=== PATIENT | male | born 1955 | race Caucasian/White ===

== ENCOUNTER 2017-11-25 09:56 | Inpatient (IN) ==
[2017-11-25] MEDS ORDERED: ALBUTEROL 2.5 MG/3 ML NEB RESP TX STA (10:21)
[2017-11-25 10:27] LABS: Basophils # 0.1 10*3/uL (0.0-0.2); Basophils % 0.5 % (0.0-0.8); Eosinophils # 0.5 10*3/uL (0.0-0.87); Eosinophils % 4.3 % (0.00-10.9); Hematocrit 41.2 VOL% (42.0-52.0); Hemoglobin 13.6 GM/DL (14.0-18.0); Immature Granulocytes % 0.5 %; Immature Granulocytes Absolute 0.05 #; Lymphocytes # 1.6 10*3/uL (1.4-4.0); Mean Corpuscular Hemoglobin 31 PG (27-34); Mean Corpuscular Volume 92.4 FL (87-102); Mean Platelet Volume 10.7 FL (9.6-12.0); Monocytes # 0.8 10*3/uL (0.11-0.8); Monocytes % 7.9 % (1.7-12.7); Neutrophils # 7.5 10*3/uL (1.4-7.4); Neutrophils % 71.8 % (38.7-73.9); Platelet Count 176 T/CUMM (130-400); Red Blood Count 4.46 MC/CUMM (3.8-5.5); Red Cell Distribution Width 12.3 % (9.3-17.3); White Blood Count 10.5 T/CUMM (4-12)
[2017-11-25 10:38] LABS: PT Patient Result 10.9 SECS; Partial Thromboplastin Time 25.1 SECS (0-40)
[2017-11-25 10:46] LABS: Alanine Aminotransferase 17 U/L (16-61); Albumin 3.2 G/DL (3.4-5.0); Alkaline Phosphatase 90 U/L (45-117); Aspartate Amino Transferase 24 U/L (0-37); Bilirubin,Total < 0.39 MG/DL (0.2-1.0); Blood Urea Nitrogen 14 MG/DL (7-18); Calcium 8.6 MG/DL (8.5-10.1); Glucose 220 MG/DL (74-106); Osmolality,Calculated 286.4 MOS/KG (273-304); Potassium 4.1 MMOL/L (3.5-5.1); Sodium 140 MMOL/L (136-145); Total Protein 7.9 G/DL (6.4-8.3)
[2017-11-25 10:47] LABS: Troponin I Only 0.194 NG/ML (0.00-0.045)
[2017-11-25 10:52] LABS: ABG Base Excess 3.5 MMOL/L (-2.5-2.5); ABG HCO3 27.2 MMOL/L (20-26); ABG Oxygen Saturation 84.8 % (95-100); ABG PCO2 44.9 MM HG (35-48); ABG PH 7.415 (7.35-7.45); ABG PO2 49.9 MM HG (80-95)
[2017-11-25] MEDS ORDERED: FUROSEMIDE 40 MG/4 ML VIAL ONE (14:14)
[2017-11-25] MEDS ORDERED: DEXTROSE 50% 25 GM/50 ML VIAL IV PRN (16:08)
[2017-11-25] MEDS ORDERED: ALBUTEROL/IPRATROPIUM 3 ML NEB RESP TX PRN (16:08)
[2017-11-25] MEDS ORDERED: GLUCAGON 1 MG VIAL IM PRN (16:08)
[2017-11-25] MEDS ORDERED: ONDANSETRON 4 MG/2 ML VIAL IV PRN (16:08)
[2017-11-25] MEDS: ASPIRIN EC 325 MG TABLET PO SCH (17:16)
[2017-11-25] MEDS: LEVOFLOXACIN INJ 750 MG in PREMIX 1 EACH IV SCH (17:16)
[2017-11-25] MEDS: ENOXAPARIN 40 MG/0.4 ML SYRINGE SUBCUT SCH (17:17)
[2017-11-25] MEDS: FUROSEMIDE 40 MG/4 ML VIAL IV SCH (17:18)
[2017-11-25] MEDS: INSULIN REGULAR 100 UNIT/ML SUBCUT SCH (17:29)
[2017-11-25] MEDS ORDERED: ENOXAPARIN 40 MG/0.4 ML SYRINGE SUBCUT ONE (17:31)
[2017-11-25] MEDS ORDERED: ASPIRIN CHEW 81 MG TABLET PO ONE (17:31)
[2017-11-25 17:32] LABS: Apearance,Urine CLEAR (Clear); Bilirubin,Urine Negative (Negative); Blood, Urine Negative (Negative); Glucose,Urine (UA) 50 mg/dL (Negative); Ketones,Urine Negative (Negative); Mucus,Urine Occasional /LPF (Occasional); Nitrite,Urine Negative (Negative); Protein,Urine Negative; RBC,Urine <1 /HPF (0-4); Urine Color Colorless (Yellow); Urine Specific Gravity 1.011 (1.001-1.035); Urine Urobilinogen < 2.0 EU/DL (0.2-1.0); WBC,Urine <1 /HPF (0-6)
[2017-11-25 18:09] LABS: CKMB % 5.1 %
[2017-11-25 18:12] LABS: Troponin I Only 5.44 NG/ML (0.00-0.045)
[2017-11-25] MEDS: ROSUVASTATIN 20 MG TABLET PO SCH (21:12)
[2017-11-25] MEDS: LOSARTAN 25 MG TABLET PO SCH (21:14)
[2017-11-25] MEDS: NITROGLYCERIN 2% OINT 1 INCH/GM PACK TOP SCH (21:15)
[2017-11-25] MEDS: METOPROLOL TARTRATE 25 MG TABLET PO SCH (21:15)
[2017-11-25 22:47] LABS: Barbiturates Screen,Urine Negative (Negative); Benzodiazepines Screen,Urine Negative (Negative); Cannabinoid Screen,Urine Positive (Negative); Opiate Screen,Urine Negative (Negative); Phencyclidine Screen,Urine Negative (Negative)
[2017-11-26] MEDS: INSULIN REGULAR 100 UNIT/ML SUBCUT SCH ×4 (00:42→19:29)
[2017-11-26] MEDS: NITROGLYCERIN 2% OINT 1 INCH/GM PACK TOP SCH ×4 (00:47→17:38)
[2017-11-26 05:36] LABS: Basophils # 0.1 10*3/uL (0.0-0.2); Basophils % 0.6 % (0.0-0.8); Eosinophils # 0.4 10*3/uL (0.0-0.87); Eosinophils % 3.9 % (0.00-10.9); Hematocrit 38.1 VOL% (42.0-52.0); Hemoglobin 12.8 GM/DL (14.0-18.0); Immature Granulocytes % 0.3 %; Immature Granulocytes Absolute 0.03 #; Lymphocytes # 2.6 10*3/uL (1.4-4.0); Lymphocytes % 26.5 % (21.2-54.2); Mean Corpuscular HGB Conc 33.6 GM/DL (32-36); Mean Corpuscular Hemoglobin 30 PG (27-34); Mean Corpuscular Volume 90.1 FL (87-102); Mean Platelet Volume 10.9 FL (9.6-12.0); Monocytes % 10.4 % (1.7-12.7); Neutrophils # 5.8 10*3/uL (1.4-7.4); Neutrophils % 58.3 % (38.7-73.9); Platelet Count 158 T/CUMM (130-400); Red Blood Count 4.23 MC/CUMM (3.8-5.5); Red Cell Distribution Width 12.4 % (9.3-17.3); White Blood Count 9.9 T/CUMM (4-12)
[2017-11-26 06:09] LABS: CKMB % 2.5 %
[2017-11-26 06:11] LABS: Troponin I Only 7.47 NG/ML (0.00-0.045)
[2017-11-26 06:14] LABS: Alanine Aminotransferase 17 U/L (16-61); Albumin 2.9 G/DL (3.4-5.0); Alkaline Phosphatase 74 U/L (45-117); Aspartate Amino Transferase 38 U/L (0-37); Bilirubin,Total < 0.39 MG/DL (0.2-1.0); Blood Urea Nitrogen 17 MG/DL (7-18); Cholesterol 140 MG/DL (50-200); Glucose 187 MG/DL (74-106); HDL Cholesterol 27 MG/DL (40-60); Osmolality,Calculated 279.8 MOS/KG (273-304); Potassium 3.6 MMOL/L (3.5-5.1); Risk Ratio 5.19; Sodium 137 MMOL/L (136-145); Total Protein 6.6 G/DL (6.4-8.3); Triglycerides 177 MG/DL (2-150); VLDL CHOLESTEROL 35.4 MG/DL
[2017-11-26] MEDS: LOSARTAN 25 MG TABLET PO SCH ×2 (09:17→20:52)
[2017-11-26] MEDS: METOPROLOL TARTRATE 25 MG TABLET PO SCH ×2 (09:17→20:52)
[2017-11-26] MEDS: ASPIRIN EC 325 MG TABLET PO SCH (09:17)
[2017-11-26] MEDS: FUROSEMIDE 40 MG/4 ML VIAL IV SCH ×2 (09:18→15:53)
[2017-11-26] MEDS: PANTOPRAZOLE 40 MG TABLET PO SCH (11:13)
[2017-11-26] MEDS ORDERED: diphenhydrAMINE CAP 50 MG CAPSULE ONE (11:37)
[2017-11-26] MEDS ORDERED: DIAZEPAM 5 MG TABLET ONE (11:38)
[2017-11-26] MEDS ORDERED: diphenhydrAMINE CAP 50 MG CAPSULE PO ONE (11:39)
[2017-11-26] MEDS: SODIUM CHLORIDE 0.9% 1,000 ML IV SCH ×3 (11:40→22:58)
[2017-11-26] MEDS ORDERED: DIAZEPAM 5 MG TABLET PO ONE (11:40)
[2017-11-26] MEDS ORDERED: LIDOCAINE 1% 20 ML VIAL ONE (11:40)
[2017-11-26] MEDS ORDERED: HEPARIN/NACL 0.9% 2 UNITS/ML 2,000 ML IV ONE (11:40)
[2017-11-26] MEDS ORDERED: HYDROmorphone 2 MG/1 ML VIAL ONE (11:56)
[2017-11-26] MEDS ORDERED: MIDAZOLAM 2 MG/2 ML VIAL ONE (11:57)
[2017-11-26] MEDS ORDERED: GLUCAGON 1 MG VIAL IM PRN (12:41)
[2017-11-26] MEDS ORDERED: DEXTROSE 50% 25 GM/50 ML VIAL IV PRN (12:41)
[2017-11-26] MEDS ORDERED: ZALEPLON 5 MG CAPSULE PO PRN (12:41)
[2017-11-26] MEDS ORDERED: NITROGLYCERIN SL 0.4 MG TABLET SL PRN (12:41)
[2017-11-26] MEDS: ENOXAPARIN 40 MG/0.4 ML SYRINGE SUBCUT SCH (15:54)
[2017-11-26] MEDS: LEVOFLOXACIN INJ 750 MG in PREMIX 1 EACH IV SCH (15:54)
[2017-11-26] MEDS ORDERED: NITROGLYCERIN 2% OINT 1 INCH/GM PACK TOP SCH (18:30)
[2017-11-26] MEDS: ROSUVASTATIN 20 MG TABLET PO SCH (20:52)
[2017-11-26] MEDS: ACETAMINOPHEN 325 MG TABLET PO PRN (21:36)
[2017-11-27] MEDS: INSULIN REGULAR 100 UNIT/ML SUBCUT SCH ×4 (00:01→17:16)
[2017-11-27] MEDS: NITROGLYCERIN 2% OINT 1 INCH/GM PACK TOP SCH ×4 (00:01→17:16)
[2017-11-27] MEDS: ACETAMINOPHEN 325 MG TABLET PO PRN (02:22)
[2017-11-27 03:11] LABS: Blood Urea Nitrogen 18 MG/DL (7-18); Glucose 195 MG/DL (74-106); Osmolality,Calculated 274.2 MOS/KG (273-304); Potassium 3.8 MMOL/L (3.5-5.1); Sodium 134 MMOL/L (136-145)
[2017-11-27] MEDS: METOPROLOL TARTRATE 25 MG TABLET PO SCH ×2 (08:55→20:57)
[2017-11-27] MEDS: LOSARTAN 25 MG TABLET PO SCH ×2 (08:55→20:57)
[2017-11-27] MEDS: PANTOPRAZOLE 40 MG TABLET PO SCH (08:55)
[2017-11-27] MEDS: ASPIRIN EC 325 MG TABLET PO SCH (08:55)
[2017-11-27] MEDS: FUROSEMIDE 40 MG/4 ML VIAL IV SCH ×2 (08:55→15:53)
[2017-11-27] MEDS: SODIUM CHLORIDE 0.9% 1,000 ML IV SCH (08:56)
[2017-11-27] MEDS: ENOXAPARIN 40 MG/0.4 ML SYRINGE SUBCUT SCH (15:53)
[2017-11-27] MEDS: LEVOFLOXACIN INJ 750 MG in PREMIX 1 EACH IV SCH (15:54)
[2017-11-27] MEDS: ROSUVASTATIN 20 MG TABLET PO SCH (20:57)
[2017-11-28] MEDS: NITROGLYCERIN 2% OINT 1 INCH/GM PACK TOP SCH ×4 (01:11→17:06)
[2017-11-28] MEDS: INSULIN REGULAR 100 UNIT/ML SUBCUT SCH ×5 (01:11→23:22)
[2017-11-28] MEDS: LOSARTAN 25 MG TABLET PO SCH ×2 (08:35→21:01)
[2017-11-28] MEDS: METOPROLOL TARTRATE 25 MG TABLET PO SCH ×2 (08:35→21:01)
[2017-11-28] MEDS: PANTOPRAZOLE 40 MG TABLET PO SCH (08:35)
[2017-11-28] MEDS: ASPIRIN EC 325 MG TABLET PO SCH (08:35)
[2017-11-28] MEDS: FUROSEMIDE 40 MG/4 ML VIAL IV SCH (08:35)
[2017-11-28] MEDS ORDERED: FUROSEMIDE 40 MG TABLET PO SCH (11:30)
[2017-11-28] MEDS: ENOXAPARIN 40 MG/0.4 ML SYRINGE SUBCUT SCH (16:04)
[2017-11-28] MEDS: LEVOFLOXACIN INJ 750 MG in PREMIX 1 EACH IV SCH (16:04)
[2017-11-28] MEDS: FUROSEMIDE 40 MG TABLET PO SCH (16:04)
[2017-11-28] MEDS: ROSUVASTATIN 20 MG TABLET PO SCH (21:01)
[2017-11-29] MEDS: NITROGLYCERIN 2% OINT 1 INCH/GM PACK TOP SCH ×4 (00:48→17:32)
[2017-11-29] MEDS: INSULIN REGULAR 100 UNIT/ML SUBCUT SCH ×3 (05:04→17:30)
[2017-11-29] MEDS: METOPROLOL TARTRATE 25 MG TABLET PO SCH ×2 (08:17→21:06)
[2017-11-29] MEDS: FUROSEMIDE 40 MG TABLET PO SCH ×2 (08:17→15:27)
[2017-11-29] MEDS: ASPIRIN EC 325 MG TABLET PO SCH (08:17)
[2017-11-29] MEDS: LOSARTAN 25 MG TABLET PO SCH ×2 (08:17→21:06)
[2017-11-29] MEDS: PANTOPRAZOLE 40 MG TABLET PO SCH (08:18)
[2017-11-29] MEDS: LEVOFLOXACIN INJ 750 MG in PREMIX 1 EACH IV SCH (15:35)
[2017-11-29] MEDS: ENOXAPARIN 40 MG/0.4 ML SYRINGE SUBCUT SCH (15:36)
[2017-11-29] MEDS: ROSUVASTATIN 20 MG TABLET PO SCH (21:06)
[2017-11-30] MEDS: NITROGLYCERIN 2% OINT 1 INCH/GM PACK TOP SCH ×4 (00:01→17:17)
[2017-11-30] MEDS: INSULIN REGULAR 100 UNIT/ML SUBCUT SCH ×4 (00:01→17:17)
[2017-11-30 06:22] LABS: Basophils # 0.1 10*3/uL (0.0-0.2); Basophils % 0.6 % (0.0-0.8); Eosinophils # 0.8 10*3/uL (0.0-0.87); Eosinophils % 8.5 % (0.00-10.9); Hematocrit 37.9 VOL% (42.0-52.0); Hemoglobin 13.4 GM/DL (14.0-18.0); Immature Granulocytes % 0.5 %; Immature Granulocytes Absolute 0.05 #; Lymphocytes # 2.5 10*3/uL (1.4-4.0); Lymphocytes % 26.4 % (21.2-54.2); Mean Corpuscular HGB Conc 35.4 GM/DL (32-36); Mean Corpuscular Hemoglobin 31 PG (27-34); Mean Corpuscular Volume 87.5 FL (87-102); Mean Platelet Volume 11.3 FL (9.6-12.0); Monocytes # 1.1 10*3/uL (0.11-0.8); Monocytes % 11.9 % (1.7-12.7); Neutrophils # 4.9 10*3/uL (1.4-7.4); Neutrophils % 52.1 % (38.7-73.9); Platelet Count 193 T/CUMM (130-400); Red Blood Count 4.33 MC/CUMM (3.8-5.5); Red Cell Distribution Width 12.4 % (9.3-17.3); White Blood Count 9.5 T/CUMM (4-12)
[2017-11-30 06:55] LABS: Calcium 8.4 MG/DL (8.5-10.1); Osmolality,Calculated 281.1 MOS/KG (273-304); Potassium 3.8 MMOL/L (3.5-5.1)
[2017-11-30] MEDS: LOSARTAN 25 MG TABLET PO SCH ×2 (08:41→21:23)
[2017-11-30] MEDS: PANTOPRAZOLE 40 MG TABLET PO SCH (08:41)
[2017-11-30] MEDS: METOPROLOL TARTRATE 25 MG TABLET PO SCH ×2 (08:41→21:23)
[2017-11-30] MEDS: ASPIRIN EC 325 MG TABLET PO SCH (08:41)
[2017-11-30] MEDS: FUROSEMIDE 40 MG TABLET PO SCH ×2 (08:41→16:12)
[2017-11-30] MEDS: ENOXAPARIN 40 MG/0.4 ML SYRINGE SUBCUT SCH (16:12)
[2017-11-30] MEDS: LEVOFLOXACIN INJ 750 MG in PREMIX 1 EACH IV SCH (16:12)
[2017-11-30] MEDS: ROSUVASTATIN 20 MG TABLET PO SCH (21:23)
[2017-12-01] MEDS: INSULIN REGULAR 100 UNIT/ML SUBCUT SCH ×4 (01:26→17:21)
[2017-12-01] MEDS: NITROGLYCERIN 2% OINT 1 INCH/GM PACK TOP SCH ×4 (01:27→17:21)
[2017-12-01 05:06] LABS: Basophils # 0.1 10*3/uL (0.0-0.2); Basophils % 0.7 % (0.0-0.8); Eosinophils # 0.8 10*3/uL (0.0-0.87); Eosinophils % 9.4 % (0.00-10.9); Hematocrit 37.6 VOL% (42.0-52.0); Hemoglobin 13.1 GM/DL (14.0-18.0); Immature Granulocytes % 0.5 %; Immature Granulocytes Absolute 0.04 #; Lymphocytes # 2.3 10*3/uL (1.4-4.0); Lymphocytes % 25.9 % (21.2-54.2); Mean Corpuscular HGB Conc 34.8 GM/DL (32-36); Mean Corpuscular Hemoglobin 30 PG (27-34); Mean Corpuscular Volume 86.8 FL (87-102); Mean Platelet Volume 10.8 FL (9.6-12.0); Monocytes % 10.9 % (1.7-12.7); Neutrophils # 4.6 10*3/uL (1.4-7.4); Neutrophils % 52.6 % (38.7-73.9); Platelet Count 184 T/CUMM (130-400); Red Blood Count 4.33 MC/CUMM (3.8-5.5); Red Cell Distribution Width 12.4 % (9.3-17.3); White Blood Count 8.8 T/CUMM (4-12)
[2017-12-01 05:23] LABS: Calcium 7.9 MG/DL (8.5-10.1); Osmolality,Calculated 279.1 MOS/KG (273-304); Potassium 3.8 MMOL/L (3.5-5.1)
[2017-12-01] MEDS: ASPIRIN EC 325 MG TABLET PO SCH (08:59)
[2017-12-01] MEDS: FUROSEMIDE 40 MG TABLET PO SCH ×2 (08:59→16:11)
[2017-12-01] MEDS: LOSARTAN 25 MG TABLET PO SCH ×2 (08:59→21:15)
[2017-12-01] MEDS: PANTOPRAZOLE 40 MG TABLET PO SCH (08:59)
[2017-12-01] MEDS: METOPROLOL TARTRATE 25 MG TABLET PO SCH ×2 (08:59→21:15)
[2017-12-01] MEDS: CHLORHEXIDINE 4% SOLN 118 ML BOTTLE TOP SCH ×2 (14:18→21:20)
[2017-12-01] MEDS ORDERED: SODIUM CHLORIDE 0.9% 1,000 ML IV PRN (14:30)
[2017-12-01] MEDS ORDERED: SODIUM CHLORIDE 0.9% 1,000 ML IV SCH (14:30)
[2017-12-01] MEDS: ENOXAPARIN 40 MG/0.4 ML SYRINGE SUBCUT SCH (16:11)
[2017-12-01] MEDS: LEVOFLOXACIN INJ 750 MG in PREMIX 1 EACH IV SCH (16:12)
[2017-12-01] MEDS ORDERED: INSULIN GLARGINE 100 UNIT/ML SUBCUT SCH (21:00)
[2017-12-01] MEDS: ROSUVASTATIN 20 MG TABLET PO SCH (21:15)
[2017-12-01] MEDS: CHLORHEXIDINE 0.12% ORAL RINSE 60 ML BOTTLE SWISH/SPIT SCH (21:16)
[2017-12-01 21:41] LABS: Apearance,Urine CLEAR (Clear); Bilirubin,Urine Negative (Negative); Blood, Urine Negative (Negative); Glucose,Urine (UA) >=500 mg/dL (Negative); Ketones,Urine Negative (Negative); Nitrite,Urine Negative (Negative); Protein,Urine Negative; RBC,Urine <1 /HPF (0-4); Urine Color Straw (Yellow); Urine Specific Gravity 1.008 (1.001-1.035); Urine Urobilinogen < 2.0 EU/DL (0.2-1.0); WBC,Urine <1 /HPF (0-6)
[2017-12-02] MEDS: INSULIN REGULAR 100 UNIT/ML SUBCUT SCH ×2 (01:18→17:49)
[2017-12-02] MEDS: NITROGLYCERIN 2% OINT 1 INCH/GM PACK TOP SCH ×2 (01:18→17:49)
[2017-12-02] MEDS ORDERED: PAPAVERINE 60 MG/2 ML VIAL ONE (04:42)
[2017-12-02] MEDS ORDERED: VANCOMYCIN 1,000 MG VIAL ONE (04:43)
[2017-12-02] MEDS ORDERED: TISSUE ADHESIVE 1 EACH APPLICATOR TOP ONE (04:43)
[2017-12-02] MEDS ORDERED: FAMOTIDINE 20 MG TABLET PO ONE (05:00)
[2017-12-02] MEDS ORDERED: DIAZEPAM 5 MG TABLET PO ONE (05:00)
[2017-12-02 05:41] LABS: Basophils # 0.1 10*3/uL (0.0-0.2); Basophils % 0.7 % (0.0-0.8); Eosinophils # 0.9 10*3/uL (0.0-0.87); Eosinophils % 8.6 % (0.00-10.9); Hematocrit 38.4 VOL% (42.0-52.0); Hemoglobin 13.2 GM/DL (14.0-18.0); Immature Granulocytes % 0.5 %; Immature Granulocytes Absolute 0.05 #; Lymphocytes # 2.4 10*3/uL (1.4-4.0); Lymphocytes % 23.1 % (21.2-54.2); Mean Corpuscular HGB Conc 34.4 GM/DL (32-36); Mean Corpuscular Hemoglobin 30 PG (27-34); Mean Corpuscular Volume 88.5 FL (87-102); Mean Platelet Volume 10.9 FL (9.6-12.0); Monocytes # 1.1 10*3/uL (0.11-0.8); Monocytes % 10.4 % (1.7-12.7); Neutrophils % 56.7 % (38.7-73.9); Platelet Count 195 T/CUMM (130-400); Red Blood Count 4.34 MC/CUMM (3.8-5.5); Red Cell Distribution Width 12.1 % (9.3-17.3); White Blood Count 10.5 T/CUMM (4-12)
[2017-12-02] MEDS: METOPROLOL TARTRATE 25 MG TABLET PO SCH ×2 (05:59→17:51)
[2017-12-02] MEDS: PANTOPRAZOLE 40 MG TABLET PO SCH ×2 (06:00→17:51)
[2017-12-02] MEDS: LOSARTAN 25 MG TABLET PO SCH ×2 (06:00→17:50)
[2017-12-02 06:14] LABS: Calcium 8.5 MG/DL (8.5-10.1); Osmolality,Calculated 278.2 MOS/KG (273-304); Potassium 3.9 MMOL/L (3.5-5.1)
[2017-12-02 06:25] LABS: Risk Ratio 3.34; VLDL CHOLESTEROL 25.8 MG/DL
[2017-12-02] MEDS ORDERED: TRANEXAMIC ACID 1,000 MG/10 ML VIAL IV ONE ×2 (06:35→13:15)
[2017-12-02] MEDS ORDERED: CEFUROXIME INJ 1,500 MG in SYRINGE 1 EACH IV ONE (07:00)
[2017-12-02 07:31] LABS: ABG Base Excess 2.1 MMOL/L (-2.5-2.5); ABG Oxygen Saturation 99.4 % (95-100); ABG PCO2 29.7 MM HG (35-48); ABG PH 7.526 (7.35-7.45); ABG TCO2 24.9 MMOL/L (23-27); Glucose Heart Surgery 232 MG/DL (74-106); Hemoglobin Heart Surgery 12.9 G/DL (14.0-18.0); Ionized Calcium Arterial 1.01 MMOL/L (1.21-1.46); PCO2 Patient Temp Arterial 29.7 MMHG; PH Patient Temp Arterial 7.526; Patient Temperature 37 CELCIUS; Potassium Heart/CVR 3.9 MMOL/L (3.5-5.1); Sodium Heart/CVR 131 MMOL/L (135-145)
[2017-12-02 08:01] LABS: Apearance,Urine CLEAR (Clear); Bilirubin,Urine Negative (Negative); Blood, Urine Small mg/dL (Negative); Glucose,Urine (UA) 50 mg/dL (Negative); Hyaline Casts,Urine 1 /LPF (0-3); Ketones,Urine Negative (Negative); Mucus,Urine Occasional /LPF (Occasional); Nitrite,Urine Negative (Negative); Protein,Urine Negative; RBC,Urine 2 /HPF (0-4); Urine Color Yellow (Yellow); Urine Specific Gravity 1.013 (1.001-1.035); Urine Urobilinogen < 2.0 EU/DL (0.2-1.0); WBC,Urine 1 /HPF (0-6)
[2017-12-02 09:07] LABS: PCO2 Patient Temp Venous 35.2 MM HG; PH Patient Temp Venous 7.479; PO2 Patient Temp Venous 39.9 MM HG; Potassium Heart/CVR 4.5 MMOL/L (3.5-5.1); VBG Base Excess 2.8 MEQ/L (0-4); VBG HCO3 26.7 MEQ/L (24-28); VBG Oxygen Saturation 83.1 %; VBG PCO2 38.8 MMHG (41-51); VBG PH 7.449; VBG PO2 45.8 MMHG (17-40)
[2017-12-02 09:38] LABS: Hemoglobin Heart Surgery 9.5 G/DL (14.0-18.0); PCO2 Patient Temp Venous 28.1 MM HG; PH Patient Temp Venous 7.569; PO2 Patient Temp Venous 47.2 MM HG; Potassium Heart/CVR 4.5 MMOL/L (3.5-5.1); VBG Base Excess 3.1 MEQ/L (0-4); VBG HCO3 25.7 MEQ/L (24-28); VBG PH 7.523; VBG PO2 58.1 MMHG (17-40)
[2017-12-02] MEDS ORDERED: PHENYLEPHRINE DRIP 20 MG/250 ML PREMIX IV ONE (09:40)
[2017-12-02 10:19] LABS: PH Patient Temp Venous 7.421; PO2 Patient Temp Venous 47.9 MM HG; Potassium Heart/CVR 4.9 MMOL/L (3.5-5.1); VBG HCO3 25.9 MEQ/L (24-28); VBG Oxygen Saturation 82.9 %; VBG PH 7.421; VBG PO2 47.9 MMHG (17-40)
[2017-12-02] MEDS ORDERED: NITROPRUSSIDE 50 MG/2 ML VIAL ONE (10:19)
[2017-12-02] MEDS ORDERED: CALCIUM CHLORIDE 1,000 MG/10 ML SYRINGE IV ONE (10:20)
[2017-12-02] MEDS ORDERED: ALBUMIN 5% 12.5 GM/250 ML VIAL IV ONE (10:20)
[2017-12-02] MEDS ORDERED: POTASSIUM CHLORIDE RIDER 100 ML IV ONE (10:20)
[2017-12-02] MEDS ORDERED: THROMBIN TOPICAL (RECOMBINANT) 5,000 UNIT VIAL TOP ONE ×2 (10:27→11:05)
[2017-12-02 10:51] LABS: ABG Base Excess -1.5 MMOL/L (-2.5-2.5); ABG HCO3 23.1 MMOL/L (20-26); ABG PCO2 38.3 MM HG (35-48); ABG PH 7.389 (7.35-7.45); ABG TCO2 21.5 MMOL/L (23-27); Glucose Heart Surgery 297 MG/DL (74-106); Hematocrit Heart Surgery 25.8 PERCENT (42-52); Hemoglobin Heart Surgery 8.3 G/DL (14.0-18.0); Ionized Calcium Arterial 1.21 MMOL/L (1.21-1.46); PCO2 Patient Temp Arterial 38.3 MMHG; PH Patient Temp Arterial 7.389; Patient Temperature 37 CELCIUS; Potassium Heart/CVR 3.6 MMOL/L (3.5-5.1); Sodium Heart/CVR 133 MMOL/L (135-145)
[2017-12-02 11:01] LABS: Hematocrit Heart Surgery 21.2 PERCENT (42-52); Hemoglobin Heart Surgery 6.8 G/DL (14.0-18.0); PCO2 Patient Temp Venous 47.3 MM HG; PH Patient Temp Venous 7.299; PO2 Patient Temp Venous 42.2 MM HG; Potassium Heart/CVR 3.8 MMOL/L (3.5-5.1); VBG Base Excess -3.1 MEQ/L (0-4); VBG HCO3 21.5 MEQ/L (24-28); VBG Oxygen Saturation 72.7 %; VBG PCO2 47.3 MMHG (41-51); VBG PH 7.299; VBG PO2 42.2 MMHG (17-40)
[2017-12-02] MEDS ORDERED: PHENYLEPHRINE DRIP 0 MG/0 ML PREMIX IV ONE (11:24)
[2017-12-02 11:31] LABS: Hematocrit Heart Surgery 24.7 PERCENT (42-52); Hemoglobin Heart Surgery 7.9 G/DL (14.0-18.0); PCO2 Patient Temp Venous 42.6 MM HG; PH Patient Temp Venous 7.4; PO2 Patient Temp Venous 41.7 MM HG; Potassium Heart/CVR 3.7 MMOL/L (3.5-5.1); VBG Base Excess 1.4 MEQ/L (0-4); VBG HCO3 25.4 MEQ/L (24-28); VBG Oxygen Saturation 77.7 %; VBG PCO2 42.6 MMHG (41-51); VBG PH 7.4; VBG PO2 41.7 MMHG (17-40)
[2017-12-02 11:52] LABS: ABG Base Excess -0.8 MMOL/L (-2.5-2.5); ABG HCO3 23.8 MMOL/L (20-26); ABG Oxygen Saturation 99.7 % (95-100); ABG PCO2 39.5 MM HG (35-48); ABG PH 7.391 (7.35-7.45); ABG TCO2 22.1 MMOL/L (23-27); Glucose Heart Surgery 241 MG/DL (74-106); Hematocrit Heart Surgery 27.9 PERCENT (42-52); Ionized Calcium Arterial 1.21 MMOL/L (1.21-1.46); PCO2 Patient Temp Arterial 39.5 MMHG; PH Patient Temp Arterial 7.391; Patient Temperature 37 CELCIUS; Potassium Heart/CVR 3.4 MMOL/L (3.5-5.1); Sodium Heart/CVR 137 MMOL/L (135-145)
[2017-12-02] MEDS ORDERED: ALBUMIN 25% 25 GM/100 ML VIAL IV ONE (11:57)
[2017-12-02] MEDS ORDERED: SODIUM BICARBONATE 50 MEQ/50 ML SYRINGE IV ONE (11:57)
[2017-12-02] MEDS ORDERED: DEXTROSE 5% KCL 20 MEQ 20 MEQ/1,000 ML BAG IV ONE (11:57)
[2017-12-02] MEDS ORDERED: PROTAMINE SULFATE 250 MG/25 ML VIAL IV ONE (11:57)
[2017-12-02] MEDS ORDERED: MAGNESIUM SULFATE 1 GM/2 ML VIAL ONE (11:58)
[2017-12-02] MEDS ORDERED: FUROSEMIDE 20 MG/2 ML VIAL ONE (11:58)
[2017-12-02] MEDS ORDERED: MANNITOL 12.5 GM/50 ML VIAL IV ONE (11:58)
[2017-12-02] MEDS ORDERED: methylPREDNISolone SOD SUC 1,000 MG/8 ML VIAL ONE (11:58)
[2017-12-02] MEDS ORDERED: HEPARIN 10,000 UNIT/10 ML VIAL ONE (11:58)
[2017-12-02] MEDS ORDERED: PROTAMINE SULFATE 50 MG/5 ML VIAL IV ONE (11:58)
[2017-12-02] MEDS ORDERED: EPINEPHrine 1 MG/ML VIAL ONE ×2 (12:19→13:14)
[2017-12-02] MEDS: SODIUM CHLORIDE 0.45% 1,000 ML IV SCH ×2 (12:45→12:46)
[2017-12-02] MEDS: ALBUMIN 5% 12.5 GM in PREMIX 1 EACH IV PRN ×3 (12:49→15:06)
[2017-12-02] MEDS ORDERED: SEVOFLURANE 1 UNIT/15 MINUTE INH ONE (13:13)
[2017-12-02] MEDS ORDERED: CALCIUM CHLORIDE 1,000 MG/10 ML VIAL IV ONE (13:13)
[2017-12-02] MEDS ORDERED: HEPARIN/NACL 0.9% 2 UNITS/ML 500 ML IV ONE (13:13)
[2017-12-02] MEDS ORDERED: fentaNYL 100 MCG/2 ML VIAL ONE (13:14)
[2017-12-02] MEDS ORDERED: ePHEDrine 50 MG/ML AMP ONE (13:14)
[2017-12-02] MEDS ORDERED: SUFentanil 250 MCG/5 ML AMP ONE (13:14)
[2017-12-02] MEDS ORDERED: MIDAZOLAM 10 MG/2 ML VIAL ONE (13:14)
[2017-12-02] MEDS ORDERED: MINERAL OIL/PETROLATUM OPH OINT 3.5 GM TUBE ONE (13:14)
[2017-12-02] MEDS ORDERED: PHENYLEPHRINE 1 MG/10 ML SYRINGE IV ONE (13:15)
[2017-12-02] MEDS ORDERED: SODIUM CHLORIDE 0.9% 4,000 ML IV ONE (13:15)
[2017-12-02] MEDS ORDERED: SODIUM CHLORIDE 0.9% 200 ML IV ONE (13:15)
[2017-12-02] MEDS ORDERED: LACTATED RINGERS 1,000 ML IV ONE (13:15)
[2017-12-02] MEDS ORDERED: NITROGLYCERIN DRIP 50 MG/250 ML BOTTLE IV ONE (13:15)
[2017-12-02] MEDS ORDERED: ETOMIDATE 40 MG/20 ML VIAL IV ONE (13:15)
[2017-12-02] MEDS ORDERED: VECURONIUM 10 MG VIAL IV ONE (13:15)
[2017-12-02] MEDS ORDERED: SODIUM CHLORIDE 0.9% 250 ML IV ONE (13:15)
[2017-12-02] MEDS ORDERED: MORPHINE 10 MG/1 ML VIAL IV PRN (13:27)
[2017-12-02] MEDS ORDERED: MIDAZOLAM 2 MG/2 ML VIAL IV PRN (13:27)
[2017-12-02] MEDS ORDERED: POTASSIUM CHLORIDE RIDER 10 MEQ in PREMIX 1 EACH IV PRN ×2 (13:27→13:47)
[2017-12-02] MEDS ORDERED: ONDANSETRON 4 MG/2 ML VIAL IV PRN (13:27)
[2017-12-02] MEDS ORDERED: MAGNESIUM SULF RIDER 4 GM in PREMIX 1 EACH IV PRN ×2 (13:27→13:47)
[2017-12-02] MEDS ORDERED: ACETAMINOPHEN 650 MG SUPP RECTAL PRN (13:27)
[2017-12-02] MEDS ORDERED: CHLORHEXIDINE 4% SOLN 118 ML BOTTLE TOP PRN (13:27)
[2017-12-02] MEDS ORDERED: DEXTROSE 50% 25 GM/50 ML VIAL IV PRN ×2 (13:27)
[2017-12-02 13:31] LABS: ABG Base Excess -3.1 MMOL/L (-2.5-2.5); ABG HCO3 22.6 MMOL/L (20-26); ABG Oxygen Saturation 97.5 % (95-100); ABG PCO2 43.4 MM HG (35-48); ABG PH 7.335 (7.35-7.45); ABG PO2 112.5 MM HG (80-95); Glucose Heart Surgery 244 MG/DL (74-106); Hemoglobin Heart Surgery 10.2 G/DL (14.0-18.0); Potassium Heart/CVR 2.9 MMOL/L (3.5-5.1)
[2017-12-02 13:35] LABS: Basophils # 0.1 10*3/uL (0.0-0.2); Basophils % 0.3 % (0.0-0.8); Eosinophils # 0.3 10*3/uL (0.0-0.87); Eosinophils % 1.5 % (0.00-10.9); Hematocrit 29.8 VOL% (42.0-52.0); Immature Granulocytes % 0.9 %; Immature Granulocytes Absolute 0.17 #; Lymphocytes # 2.3 10*3/uL (1.4-4.0); Lymphocytes % 11.8 % (21.2-54.2); Mean Corpuscular HGB Conc 33.6 GM/DL (32-36); Mean Corpuscular Hemoglobin 29 PG (27-34); Mean Corpuscular Volume 86.6 FL (87-102); Mean Platelet Volume 10.4 FL (9.6-12.0); Monocytes # 1.8 10*3/uL (0.11-0.8); Monocytes % 9.4 % (1.7-12.7); Neutrophils # 14.5 10*3/uL (1.4-7.4); Neutrophils % 76.1 % (38.7-73.9); Platelet Count 136 T/CUMM (130-400); Red Blood Count 3.44 MC/CUMM (3.8-5.5); Red Cell Distribution Width 13.8 % (9.3-17.3); White Blood Count 19.1 T/CUMM (4-12)
[2017-12-02 13:43] LABS: INR 1.2; PT Patient Result 12.3 SECS; Partial Thromboplastin Time 32.2 SECS (0-40)
[2017-12-02] MEDS ORDERED: POTASSIUM CHLORIDE RIDER 20 MEQ in PREMIX 1 EACH IV PRN (13:47)
[2017-12-02] MEDS ORDERED: MAGNESIUM SULF RIDER 2 GM in PREMIX 1 EACH IV PRN (13:47)
[2017-12-02 13:49] LABS: Blood Urea Nitrogen 17 MG/DL (7-18); Calcium 7.9 MG/DL (8.5-10.1); Glucose 257 MG/DL (74-106); Osmolality,Calculated 293.1 MOS/KG (273-304); Potassium 3.3 MMOL/L (3.5-5.1); Sodium 142 MMOL/L (136-145)
[2017-12-02 13:54] LABS: Lactic Acid 4.4 MMOL/L (0.4-2.0)
[2017-12-02] MEDS: POTASSIUM CHLORIDE RIDER 20 MEQ in PREMIX 1 EACH IV PRN ×4 (14:05→23:29)
[2017-12-02 14:08] LABS: Anisocytosis Slight; Hypochromasia 1+; Macrocytosis Slight; Platelet Estimate Decreased
[2017-12-02] MEDS: INSULIN REGULAR DRIP 100 ML IV SCH (14:28)
[2017-12-02] MEDS: MAGNESIUM SULF RIDER 2 GM in PREMIX 1 EACH IV PRN (15:17)
[2017-12-02] MEDS ORDERED: PHENYLEPHRINE DRIP 40 MG/250 ML PREMIX IV ONE (15:48)
[2017-12-02] MEDS: INSULIN REGULAR 100 UNIT/ML IV PRN ×3 (16:00→20:08)
[2017-12-02] MEDS ORDERED: PHENYLEPHRINE DRIP 40 MG/250 ML PREMIX IV SCH (16:00)
[2017-12-02 17:23] LABS: ABG Base Excess -2.8 MMOL/L (-2.5-2.5); ABG HCO3 22.7 MMOL/L (20-26); ABG Oxygen Saturation 98.5 % (95-100); ABG PCO2 42.3 MM HG (35-48); ABG PH 7.348 (7.35-7.45); ABG PO2 160.4 MM HG (80-95); Glucose Heart Surgery 305 MG/DL (74-106); Hemoglobin Heart Surgery 10.5 G/DL (14.0-18.0); Potassium Heart/CVR 4.4 MMOL/L (3.5-5.1)
[2017-12-02] MEDS: FUROSEMIDE 40 MG TABLET PO SCH (17:50)
[2017-12-02] MEDS: ASPIRIN EC 325 MG TABLET PO SCH (17:50)
[2017-12-02] MEDS: CHLORHEXIDINE 4% SOLN 118 ML BOTTLE TOP SCH (17:51)
[2017-12-02] MEDS: CHLORHEXIDINE 0.12% ORAL RINSE 60 ML BOTTLE SWISH/SPIT SCH ×2 (17:51→20:20)
[2017-12-02] MEDS ORDERED: LACTATED RINGERS 500 ML IV ONE ×2 (18:22→19:53)
[2017-12-02] MEDS: CEFUROXIME INJ 1,500 MG in SYRINGE 1 EACH IV SCH (20:20)
[2017-12-02] MEDS: SODIUM CHLORIDE 0.9% 250 ML IV PRN ×4 (21:38→22:35)
[2017-12-02] MEDS: CALCIUM CHLORIDE 1,000 MG/10 ML SYRINGE IV PRN ×2 (21:39→21:40)
[2017-12-02 21:40] LABS: Hematocrit 23.8 VOL% (42.0-52.0)
[2017-12-02 22:04] LABS: ABG Base Excess -3.7 MMOL/L (-2.5-2.5); ABG HCO3 21.4 MMOL/L (20-26); ABG Oxygen Saturation 99.9 % (95-100); ABG PCO2 38.3 MM HG (35-48); ABG PH 7.356 (7.35-7.45); ABG TCO2 20.2 MMOL/L (23-27); Glucose Heart Surgery 235 MG/DL (74-106); Hematocrit Heart Surgery 23.4 PERCENT (42-52); Hemoglobin Heart Surgery 7.5 G/DL (14.0-18.0); Potassium Heart/CVR 3.2 MMOL/L (3.5-5.1)
[2017-12-02 22:04] LABS: Lactic Acid 3.4 MMOL/L (0.4-2.0)
[2017-12-03] MEDS: INSULIN REGULAR DRIP 100 ML IV SCH (00:37)
[2017-12-03] MEDS: SODIUM CHLORIDE 0.45% 1,000 ML IV SCH ×2 (02:04→10:00)
[2017-12-03 04:18] LABS: Basophils % 0.1 % (0.0-0.8); Eosinophils % 0.1 % (0.00-10.9); Hematocrit 24.7 VOL% (42.0-52.0); Hemoglobin 8.8 GM/DL (14.0-18.0); Immature Granulocytes % 0.5 %; Immature Granulocytes Absolute 0.09 #; Lymphocytes # 1.3 10*3/uL (1.4-4.0); Lymphocytes % 7.3 % (21.2-54.2); Mean Corpuscular HGB Conc 35.6 GM/DL (32-36); Mean Corpuscular Hemoglobin 30 PG (27-34); Mean Corpuscular Volume 84.6 FL (87-102); Mean Platelet Volume 11.1 FL (9.6-12.0); Monocytes # 2.1 10*3/uL (0.11-0.8); Monocytes % 11.4 % (1.7-12.7); Neutrophils # 14.7 10*3/uL (1.4-7.4); Neutrophils % 80.6 % (38.7-73.9); Platelet Count 121 T/CUMM (130-400); Red Blood Count 2.92 MC/CUMM (3.8-5.5); Red Cell Distribution Width 14.2 % (9.3-17.3); White Blood Count 18.3 T/CUMM (4-12)
[2017-12-03 04:45] LABS: Calcium 7.4 MG/DL (8.5-10.1); Osmolality,Calculated 279.3 MOS/KG (273-304); Potassium 4.1 MMOL/L (3.5-5.1)
[2017-12-03 05:10] LABS: Band Neutrophils 3 % (0-10); Giant Platelets Few; Hypochromasia 1+; Lymphocytes 6 % (20-55); Ovalocytes Slight; Platelet Estimate Normal; Segmented Neutrophils 84 % (50-85); Total Cells Counted 100
[2017-12-03] MEDS: MAGNESIUM SULF RIDER 2 GM in PREMIX 1 EACH IV PRN (05:25)
[2017-12-03] MEDS ORDERED: FUROSEMIDE 40 MG/4 ML VIAL IV ONE (05:29)
[2017-12-03] MEDS: CEFUROXIME INJ 1,500 MG in SYRINGE 1 EACH IV SCH ×2 (08:50→21:41)
[2017-12-03] MEDS: CHLORHEXIDINE 0.12% ORAL RINSE 60 ML BOTTLE SWISH/SPIT SCH ×2 (09:00→21:41)
[2017-12-03] MEDS: GABAPENTIN 300 MG CAPSULE PO SCH ×3 (09:06→21:38)
[2017-12-03] MEDS: ASPIRIN EC 325 MG TABLET PO SCH (09:06)
[2017-12-03] MEDS: FUROSEMIDE 40 MG TABLET PO SCH (09:06)
[2017-12-03] MEDS: INSULIN REGULAR 100 UNIT/ML SUBCUT SCH ×3 (12:09→21:37)
[2017-12-03] MEDS: MORPHINE 2 MG/1 ML SYRINGE IV PRN (18:52)
[2017-12-03] MEDS: ATORVASTATIN 40 MG TABLET PO SCH (21:38)
[2017-12-04] MEDS: INSULIN REGULAR 100 UNIT/ML SUBCUT SCH ×6 (00:50→21:26)
[2017-12-04 06:08] LABS: Basophils % 0.2 % (0.0-0.8); Hematocrit 27.7 VOL% (42.0-52.0); Hemoglobin 9.1 GM/DL (14.0-18.0); Immature Granulocytes % 1.1 %; Lymphocytes # 2.2 10*3/uL (1.4-4.0); Lymphocytes % 11.6 % (21.2-54.2); Mean Corpuscular HGB Conc 32.9 GM/DL (32-36); Mean Corpuscular Hemoglobin 29 PG (27-34); Mean Corpuscular Volume 87.4 FL (87-102); Mean Platelet Volume 11.9 FL (9.6-12.0); Monocytes # 1.9 10*3/uL (0.11-0.8); Monocytes % 10.1 % (1.7-12.7); Neutrophils # 14.5 10*3/uL (1.4-7.4); Platelet Count 110 T/CUMM (130-400); Red Blood Count 3.17 MC/CUMM (3.8-5.5); Red Cell Distribution Width 14.9 % (9.3-17.3); White Blood Count 18.8 T/CUMM (4-12)
[2017-12-04 06:51] LABS: Osmolality,Calculated 283.1 MOS/KG (273-304)
[2017-12-04] MEDS: FUROSEMIDE 40 MG TABLET PO SCH (09:01)
[2017-12-04] MEDS: ASPIRIN EC 325 MG TABLET PO SCH (09:01)
[2017-12-04] MEDS: GABAPENTIN 300 MG CAPSULE PO SCH ×3 (09:01→21:27)
[2017-12-04] MEDS: CHLORHEXIDINE 0.12% ORAL RINSE 60 ML BOTTLE SWISH/SPIT SCH ×2 (09:03→21:47)
[2017-12-04] MEDS: INSULIN GLARGINE 100 UNIT/ML SUBCUT SCH (21:26)
[2017-12-04] MEDS: METOPROLOL TARTRATE 25 MG TABLET PO SCH (21:27)
[2017-12-04] MEDS: ATORVASTATIN 40 MG TABLET PO SCH (21:27)
[2017-12-04] MEDS: MORPHINE 2 MG/1 ML SYRINGE IV PRN (21:28)
[2017-12-05] MEDS: INSULIN REGULAR 100 UNIT/ML SUBCUT SCH ×6 (01:23→21:27)
[2017-12-05 05:14] LABS: Basophils # 0.1 10*3/uL (0.0-0.2); Basophils % 0.4 % (0.0-0.8); Eosinophils # 0.2 10*3/uL (0.0-0.87); Eosinophils % 1.1 % (0.00-10.9); Hematocrit 25.8 VOL% (42.0-52.0); Hemoglobin 8.5 GM/DL (14.0-18.0); Immature Granulocytes % 0.7 %; Immature Granulocytes Absolute 0.11 #; Lymphocytes # 3.1 10*3/uL (1.4-4.0); Lymphocytes % 20.8 % (21.2-54.2); Mean Corpuscular HGB Conc 32.9 GM/DL (32-36); Mean Corpuscular Hemoglobin 29 PG (27-34); Mean Corpuscular Volume 88.1 FL (87-102); Mean Platelet Volume 12.1 FL (9.6-12.0); Monocytes # 1.7 10*3/uL (0.11-0.8); Platelet Count 122 T/CUMM (130-400); Red Blood Count 2.93 MC/CUMM (3.8-5.5); Red Cell Distribution Width 14.6 % (9.3-17.3); White Blood Count 15.1 T/CUMM (4-12)
[2017-12-05 05:56] LABS: Calcium 7.5 MG/DL (8.5-10.1); Osmolality,Calculated 285.5 MOS/KG (273-304); Potassium 3.9 MMOL/L (3.5-5.1)
[2017-12-05] MEDS: FUROSEMIDE 40 MG TABLET PO SCH (09:25)
[2017-12-05] MEDS: GABAPENTIN 300 MG CAPSULE PO SCH ×3 (09:26→20:35)
[2017-12-05] MEDS: METOPROLOL TARTRATE 25 MG TABLET PO SCH ×2 (09:26→20:35)
[2017-12-05] MEDS: ASPIRIN EC 325 MG TABLET PO SCH (09:26)
[2017-12-05] MEDS: CHLORHEXIDINE 0.12% ORAL RINSE 60 ML BOTTLE SWISH/SPIT SCH ×2 (09:26→20:35)
[2017-12-05] MEDS: MORPHINE 2 MG/1 ML SYRINGE IV PRN ×2 (09:37→21:26)
[2017-12-05] MEDS: ATORVASTATIN 40 MG TABLET PO SCH (20:35)
[2017-12-05] MEDS: INSULIN GLARGINE 100 UNIT/ML SUBCUT SCH (21:28)
[2017-12-06] MEDS: INSULIN REGULAR 100 UNIT/ML SUBCUT SCH ×6 (00:13→22:00)
[2017-12-06 05:26] LABS: Calcium 7.5 MG/DL (8.5-10.1); Potassium 4.1 MMOL/L (3.5-5.1)
[2017-12-06 05:41] LABS: Basophils # 0.1 10*3/uL (0.0-0.2); Basophils % 0.6 % (0.0-0.8); Eosinophils # 0.6 10*3/uL (0.0-0.87); Eosinophils % 4.5 % (0.00-10.9); Hematocrit 28.4 VOL% (42.0-52.0); Hemoglobin 9.2 GM/DL (14.0-18.0); Immature Granulocytes % 1.2 %; Immature Granulocytes Absolute 0.15 #; Lymphocytes # 2.8 10*3/uL (1.4-4.0); Lymphocytes % 21.8 % (21.2-54.2); Mean Corpuscular HGB Conc 32.4 GM/DL (32-36); Mean Corpuscular Hemoglobin 29 PG (27-34); Mean Corpuscular Volume 90.7 FL (87-102); Mean Platelet Volume 11.8 FL (9.6-12.0); Monocytes # 1.4 10*3/uL (0.11-0.8); Monocytes % 10.9 % (1.7-12.7); Neutrophils # 7.8 10*3/uL (1.4-7.4); Platelet Count 126 T/CUMM (130-400); Red Blood Count 3.13 MC/CUMM (3.8-5.5); Red Cell Distribution Width 14.6 % (9.3-17.3); White Blood Count 12.8 T/CUMM (4-12)
[2017-12-06] MEDS: METOPROLOL TARTRATE 25 MG TABLET PO SCH ×2 (08:36→21:59)
[2017-12-06] MEDS: ASPIRIN EC 325 MG TABLET PO SCH (08:37)
[2017-12-06] MEDS: FUROSEMIDE 40 MG TABLET PO SCH (08:37)
[2017-12-06] MEDS: GABAPENTIN 300 MG CAPSULE PO SCH ×3 (08:37→21:59)
[2017-12-06] MEDS: CHLORHEXIDINE 0.12% ORAL RINSE 60 ML BOTTLE SWISH/SPIT SCH ×2 (08:41→22:17)
[2017-12-06] MEDS ORDERED: NITROGLYCERIN SL 0.4 MG TABLET SL PRN (09:55)
[2017-12-06] MEDS: ATORVASTATIN 40 MG TABLET PO SCH (21:59)
[2017-12-06] MEDS: INSULIN GLARGINE 100 UNIT/ML SUBCUT SCH (21:59)
[2017-12-06] MEDS: MORPHINE 2 MG/1 ML SYRINGE IV PRN (22:05)
[2017-12-07 04:50] LABS: Basophils # 0.1 10*3/uL (0.0-0.2); Basophils % 0.5 % (0.0-0.8); Eosinophils # 0.9 10*3/uL (0.0-0.87); Hematocrit 25.3 VOL% (42.0-52.0); Hemoglobin 8.6 GM/DL (14.0-18.0); Immature Granulocytes % 1.7 %; Immature Granulocytes Absolute 0.25 #; Lymphocytes # 2.9 10*3/uL (1.4-4.0); Lymphocytes % 19.1 % (21.2-54.2); Mean Corpuscular Hemoglobin 29 PG (27-34); Mean Corpuscular Volume 86.3 FL (87-102); Mean Platelet Volume 11.4 FL (9.6-12.0); Monocytes # 1.6 10*3/uL (0.11-0.8); Monocytes % 10.5 % (1.7-12.7); Neutrophils # 9.3 10*3/uL (1.4-7.4); Neutrophils % 62.2 % (38.7-73.9); Platelet Count 200 T/CUMM (130-400); Red Blood Count 2.93 MC/CUMM (3.8-5.5); Red Cell Distribution Width 14.3 % (9.3-17.3); White Blood Count 14.9 T/CUMM (4-12)
[2017-12-07 05:23] LABS: Calcium 7.9 MG/DL (8.5-10.1)
[2017-12-07 05:35] LABS: Hypochromasia 1+; Platelet Estimate Adequate
[2017-12-07 05:36] LABS: Giant Platelets Few; Ovalocytes Slight
[2017-12-07] MEDS: FUROSEMIDE 40 MG TABLET PO SCH (08:34)
[2017-12-07] MEDS: GABAPENTIN 300 MG CAPSULE PO SCH ×3 (08:35→21:03)
[2017-12-07] MEDS: METOPROLOL TARTRATE 25 MG TABLET PO SCH ×2 (08:35→21:03)
[2017-12-07] MEDS: ASPIRIN EC 325 MG TABLET PO SCH (08:35)
[2017-12-07] MEDS: INSULIN REGULAR 100 UNIT/ML SUBCUT SCH ×4 (08:35→21:04)
[2017-12-07] MEDS: CHLORHEXIDINE 0.12% ORAL RINSE 60 ML BOTTLE SWISH/SPIT SCH ×2 (08:36→21:04)
[2017-12-07] MEDS: ATORVASTATIN 40 MG TABLET PO SCH (21:03)
[2017-12-07] MEDS: INSULIN GLARGINE 100 UNIT/ML SUBCUT SCH (21:04)
[2017-12-08 06:17] LABS: Basophils # 0.1 10*3/uL (0.0-0.2); Basophils % 0.4 % (0.0-0.8); Eosinophils % 5.8 % (0.00-10.9); Hematocrit 24.9 VOL% (42.0-52.0); Hemoglobin 8.4 GM/DL (14.0-18.0); Immature Granulocytes % 3.4 %; Immature Granulocytes Absolute 0.55 #; Lymphocytes # 2.8 10*3/uL (1.4-4.0); Mean Corpuscular HGB Conc 33.7 GM/DL (32-36); Mean Corpuscular Hemoglobin 30 PG (27-34); Mean Corpuscular Volume 87.4 FL (87-102); Mean Platelet Volume 11.8 FL (9.6-12.0); Monocytes # 1.6 10*3/uL (0.11-0.8); NRBC # 0.02 10*3/uL; Neutrophils # 10.4 10*3/uL (1.4-7.4); Neutrophils % 63.4 % (38.7-73.9); Platelet Count 243 T/CUMM (130-400); Red Blood Count 2.85 MC/CUMM (3.8-5.5); Red Cell Distribution Width 14.6 % (9.3-17.3); White Blood Count 16.4 T/CUMM (4-12)
[2017-12-08 06:44] LABS: Calcium 7.9 MG/DL (8.5-10.1); Eosinophils 2 % (0-10); Lymphocytes 14 % (20-55); Metamyelocytes 1 %; Potassium 4.1 MMOL/L (3.5-5.1); Segmented Neutrophils 73 % (50-85); Total Cells Counted 100
[2017-12-08 06:45] LABS: Microcytosis 1+; Platelet Estimate Normal; Polychromasia Slight
[2017-12-08] MEDS ORDERED: LEVOFLOXACIN 750 MG TABLET PO SCH (09:00)
[2017-12-08] MEDS: METOPROLOL TARTRATE 25 MG TABLET PO SCH (09:08)
[2017-12-08] MEDS: ASPIRIN EC 325 MG TABLET PO SCH (09:09)
[2017-12-08] MEDS: GABAPENTIN 300 MG CAPSULE PO SCH ×2 (09:09→16:12)
[2017-12-08] MEDS: INSULIN REGULAR 100 UNIT/ML SUBCUT SCH ×3 (09:09→16:12)
[2017-12-08] MEDS: CHLORHEXIDINE 0.12% ORAL RINSE 60 ML BOTTLE SWISH/SPIT SCH (09:09)
[2017-12-08] MEDS: FUROSEMIDE 40 MG TABLET PO SCH (09:09)
[2017-12-08] MEDS ORDERED: ASCORBIC ACID 500 MG TABLET PO SCH (14:00)
[2017-12-08 16:32] VITALS: BP 137/60
== END 2017-12-08 20:00 | disposition left against medical advice (07) | DRG 233 ==
LOC: EDBD → EDUNIT# → N.ED 09:56 → N.EDINP 14:14 → SUATTDRO 14:14 → N.TELES 15:53 → N.CVR 12-02 09:11 → N.TELES 12-03 16:54
PROVIDERS: ADMIT Internal Medicine; ATTEND Internal Medicine

== ENCOUNTER 2018-03-29 10:55 | Inpatient (IN) ==
[2018-04-01 07:34] VITALS: BP 116/73
== END 2018-04-01 11:25 | disposition home health service (06) | DRG 253 ==
LOC: N.ED 10:55 → N.EDINP 13:58 → N.TELEN 14:25
PROVIDERS: ADMIT Internal Medicine Cardiovascular Disease; ATTEND Internal Medicine Cardiovascular Disease